=== PATIENT | female | born 1945 | race Caucasian/White ===

== ENCOUNTER → 2022-05-14 | Outpatient (CLI) | payer MEDICARE ==
--- NOTE | 2022-05-14 16:23 | Diagnostic Imaging Report ---
INDICATION: Left foot pain post injury. TECHNIQUE: AP, oblique, and lateral views of the left foot are obtained. FINDINGS: There is an acute nondisplaced horizontal fracture of the base of the fifth metatarsal. No other acute finding is seen. There is a hallux valgus deformity. IMPRESSION: Acute nondisplaced fracture of the base of the fifth metatarsal. Hallux valgus deformity. Dictated by: Dictated on workstation # [id number]
== END ==
LOC: RAD FS 13:18
PROVIDERS: ATTEND Nurse Practitioner Family
DX: S92.355A Nondisplaced fracture of fifth metatarsal bone, left foot, initial encounter for closed fracture (principal); M20.12 Hallux valgus (acquired), left foot; X58.XXXA Exposure to other specified factors, initial encounter
CPT/HCPCS: 73630